=== PATIENT | female | born 1945 | race Caucasian/White ===

== ENCOUNTER 2020-11-30 11:24 | Outpatient (REF) | payer MEDICARE, SELFPAY ==
[2020-11-30 13:29] LABS: MANUAL DIFF FLAG NO
[2020-11-30 13:32] LABS: Basophils Absolute Auto 0.1 X10*3/uL (0.0-0.2); Basophils Percent Auto 0.8 % (0-2); Eosinophils Absolute Auto 0.2 X10*3/uL (0.0-0.4); Eosinophils Percent Auto 2.4 % (0-4); Hematocrit 48.7 % (37-47); Hemoglobin 15.1 g/dl (12.0-16.0); Imm Gran Abs Auto 0.01 X10*3/uL (0.00-0.03); Imm Gran Pct Auto 0.1 % (0.0-0.4); Lymphocytes Absolute Auto 0.9 X10*3/uL (1.2-4.9); Lymphocytes Percent Auto 12.2 % (20-40); Mean Corpuscular Hemoglobin 29.2 pg (27.0-33.0); Mean Platelet Volume 9.1 fL (9.4-12.3); Monocytes Absolute Auto 0.5 X10*3/uL (0.1-1.2); Neutrophils Absolute Auto 5.7 X10*3/uL (2.0-8.3); Neutrophils Percent Auto 77.5 % (45-73); Platelet Count 229 X10*3/uL (160-400); Red Blood Count 5.18 X10*6/uL (4.20-5.50); Red Cell Distribution Width 15.6 % (11.0-16.0); White Blood Count 7.4 X10*3/uL (4.8-10.8)
[2020-11-30 13:58] LABS: Alanine Aminotransferase 15 U/L (0-31); Albumin Level 4.1 g/dL (3.5-5.0); Alkaline Phosphatase 116 U/L (39-117); Anion Gap 13 (12-20); Aspartate Amino Transferase 20 U/L (5-31); Bilirubin Total 0.7 mg/dL (0.0-1.0); Blood Urea Nitrogen 11 mg/dL (9-16); Carbon Dioxide 36 mmol/L (22-29); Chloride 95 mmol/L (96-108); Estimated Glomerular Filt Rate > 60; Glucose Fasting 98 mg/dL (60-99); Potassium 4.2 mmol/L (3.3-5.1); Sodium 140 mmol/L (135-145); Total Protein 7.4 g/dL (6.5-8.0)
[2020-11-30 14:13] LABS: Free T4 (Free Thyroxine) 1.11 ng/dL (0.71-1.85); Thyroid Stimulating Hormone 1.59 uIU/mL (0.32-4.0); Vitamin D 25-OH Total 45.1 ng/mL (>30)
== END 2020-11-30 11:25 | disposition home or self-care (01) ==
LOC: HO.10HDL 11:24
PROVIDERS: Visit Provider Internal Medicine
DX: I10 Essential (primary) hypertension (principal); E55.9 Vitamin D deficiency, unspecified; R53.83 Other fatigue
CPT/HCPCS: 36415; 80053; 82306; 84439; 84443; 85025

== ENCOUNTER 2021-03-06 06:23 | Emergency (ER) | payer MEDICARE, SELFPAY ==
[2021-03-06 06:25] VITALS: BP 00/00; PULSE 144; O2SAT 100
[2021-03-06 06:34] VITALS: BP 83/55; PULSE 81; RESP 7; TEMP 32.2; O2SAT 100; BMI 25.7
--- NOTE | 2021-03-06 06:34 | ECG_ITS ---
Test Reason : CARDIAC Blood Pressure : / mmHG Vent. Rate : 067 BPM Atrial Rate : 067 BPM P-R Int : 158 ms QRS Dur : 136 ms QT Int : 530 ms P-R-T Axes : 084 107 -79 degrees QTc Int : 560 ms Poor data quality Sinus rhythm Right atrial enlargement Right bundle branch block Diffuse precordial ST depressions and T wave inversions - consider ischemia Abnormal ECG When compared with ECG of 15-MAR-2004 15:09, Diffuse ST changes Referred By: Generic ED Physician Electronically Signed By:Anand Barth
[2021-03-06 06:45] LABS: Hemoglobin 13.5 g/dl (12.0-16.0); PLT CLUMP 1
[2021-03-06 06:46] LABS: Hematocrit 48.5 % (37-47); Mean Corpuscular HGB Conc 27.8 g/dl (31.0-35.0); Mean Corpuscular Volume 107.8 fL (80-98); Mean Platelet Volume 10.6 fL (9.4-12.3); NRBC Pct Auto 0.9 /100WBC (0.0-0.2); Red Cell Distribution Width 15.5 % (11.0-16.0); White Blood Count 6.8 X10*3/uL (4.8-10.8)
[2021-03-06 06:48] LABS: Platelet Count 105 X10*3/uL (160-400)
--- NOTE | 2021-03-06 06:49 | ED.GENADULT ---
HPI - General Adult General Stated complaint: cardiac arrest Time Seen by Provider: 03/06/21 06:49 Source: EMS Mode of arrival: EMS Limitations: other History of Present Illness HPI narrative: Patient is brought to the emergency room in cardiac arrest. The patient was found unconscious at 05:35, unresponsive by her son. Patient was seen normal at 1 in the morning, then at 230 in the morning, the patient was sound asleep. At 05:35 in the morning the patient's son found the patient unresponsive. EMS was called, on arrival the patient was seen a systole, CPR was started, initially they got PEA. CPR was done for 10 minutes initially, the EMS team regained ROSC, then the patient lost pulse again, the 2nd time CPR was attempted, CPR was done for 5 minutes. ROSC regain. On arrival to the emergency room, patient had pulse, was intubated, patient was given 5000 units of heparin and rectal aspirin. EKG suspicious for posterior inferior STEMI. The EMS crew reported that prior to the 2nd time they regained rROSC, the patient was shocked 1 it is, amiodarone was not given. Multiple doses of epinephrine given. Patient's son states that the patient is otherwise well, alert and oriented x4, takes care of herself at home. Review of Systems Review of Systems: Yes unobtainable due to endotracheal tube and Unobtainable due to mental condition PMF Past Medical History Medical History (Updated 03/06/21 @ 07:08 by Kelsie Billings MD) COPD (chronic obstructive pulmonary disease) Social History Social History Advance Directives: No Advance Directives Information Provided: No Physical Exam Vital Signs: Appearance: Intubated Eyes: Pupils equal, round and reactive to light. ENT: Pharynx normal. ET tube in place Neck: C-collar precautions, no gross abnormalities CVS: Heart rate 64 Respiratory: patient being ventilated Abdomen: Soft and nontender. Mildly distended Skin: Skin warm and dry. Mottled Extremities: No lower extremity edema. Neuro: Unresponsive Course Course Course Narrative: I discussed the patient with Dr. Barth. NG tube was inserted, Brilinta given. Patient going straight to the [facility] Medical Decision Making Lab Data Result diagrams: 03/06/21 06:40 03/06/21 06:40 Labs: Lab Results 03/06/21 03/06/21 Range/Units 06:40 06:40 WBC 6.8 (4.8-10.8) X10*3/uL RBC 4.50 (4.20-5.50) X10*6/uL Hgb 13.5 (12.0-16.0) g/dl Hct 48.5 H (37-47) % MCV 107.8 H (80-98) fL MCH 30.0 (27.0-33.0) pg MCHC 27.8 L (31.0-35.0) g/dl RDW 15.5 (11.0-16.0) % Plt Count 105 L D (160-400) X10*3/uL MPV 10.6 (9.4-12.3) fL Immature Gran % (Auto) Cancelled Neut % (Auto) Cancelled Lymph % (Auto) Cancelled [place] % (Auto) Cancelled Eos % (Auto) Cancelled Baso % (Auto) Cancelled Lymph # (Auto) Cancelled [place] # (Auto) Cancelled Eos # (Auto) Cancelled Baso # (Auto) Cancelled Abs Immat Gran (auto) Cancelled Absolute Neuts (auto) Cancelled Absolute Nucleated RBC 0.060 H (0.0-0.012) X10*3/uL Nucleated RBC % (auto) 0.9 H (0.0-0.2) /100WBC Hold Blue Top SEE NOTE ECG Data Attestation: I personally reviewed and interpreted this ECG as follows: (EKG concerning for an inferior posterior STEMI) Discharge Plan Discharge Clinical Impression: ST elevation (STEMI) myocardial infarction Qualifiers: Involved coronary artery: unspecified coronary artery Qualified Code(s): I21.3 - ST elevation (STEMI) myocardial infarction of unspecified site Patient Disposition: [facility] Transfer Details: [facility] cardiac catheterization lab
[2021-03-06 06:56] LABS: INTERNATIONAL NORM RATIO 1.3 (0.9-1.1); Prothrombin Time 15.6 SEC (10.8-13.0)
[2021-03-06 07:11] LABS: Partial Thromboplastin Time 63.4 SEC (24.1-38.0)
[2021-03-06 07:13] LABS: Lactic Acid 9.6 mmol/L (0.5-2.0)
[2021-03-06 07:14] LABS: B Type Natriuretic Peptide 865 pg/mL (<100); Troponin-I High Sensitivity 266.6 ng/L (<3.5-17.0)
[2021-03-06 07:18] LABS: Band Neutrophils Percent 8 % (3-5); Eosinophils Absolute Manual 0.1 X10*3/UL (0.0-0.8); Eosinophils Percent Manual 1 % (0-4); Lymphocytes Absolute Manual 1.5 X10*3/uL (0.6-4.8); Lymphocytes Percent Manual 22 % (20-40); Metamyelocytes Absolute 0.2 X10*3/uL; Metamyelocytes Percent 3 %; Monocytes Absolute Manual 0.2 X10*3/uL (0.0-1.2); Monocytes Percent Manual 3 % (2-11); Myelocytes Absolute 0.3 X10*/uL; Myelocytes Percent 4 %; Neutrophils Absolute Manual 4.6 X10*3/uL (2.2-7.9); Neutrophils Percent Manual 59 % (45-73)
[2021-03-06 07:20] LABS: Macrocytosis 1+ (5-14) /OIF; RBC Morphology NOTED
[2021-03-06 07:22] LABS: Burr Cells 2+ (3-5) /OIF; Platelet Estimate DECREASED (NORMAL); Platelet Morphology Comment NORMAL
--- NOTE | 2021-03-06 07:28 | PC.NURSE ---
Addendum entered by Siri Alford 03/06/21 07:34: Paper documentation chart. Original Note: Paper documentation
[2021-03-06 07:31] LABS: Glucose, Whole Blood 34 mg/dL (60-115)
[2021-03-06 07:31] LABS: Glucose, Whole Blood 212 mg/dL (60-115)
--- NOTE | 2021-03-06 07:35 | PC.NURSE ---
RN to RN report given to Katharine at [facility] Cardiac laboratory equipment cleaner. Pt en route to [facility] via [facility].
--- NOTE | 2021-03-06 07:38 | PC.NURSE ---
Copy of Paper documentation faxed to MILENA Alcantar at [facility] Cardiac label press operator at fax# [phone].
[2021-03-06 08:45] LABS: Reflex Lactate? Lactic Acid Added
== END 2021-03-06 07:25 | disposition short-term general hospital (02) ==
PROVIDERS: Emergency Provider Emergency Medicine
DX: I46.9 Cardiac arrest, cause unspecified (principal); I21.3 ST elevation (STEMI) myocardial infarction of unspecified site
CPT/HCPCS: 36415; 80048; 80320; 82947; 83605; 83735; 83880; 84484; 85007; 85027; 85610; 85730; 93005; 99285